=== PATIENT | male | born 1975 | race Caucasian/White ===

== ENCOUNTER 2018-01-26 04:30 | Emergency (ER) | END 2018-01-26 08:00 | disposition home or self-care (01) ==

== ENCOUNTER 2018-08-24 10:09 | Observation (INO) | payer MEDICAID ==
[~2018-08-24] VITALS: Ht 167.6 cm; Wt 100.5 kg
[~2018-08-24 10:09] MED LIST: NAPR-985 PO
--- NOTE | 2018-08-24 11:49 | ERD ---
ER Documentation Chief Complaint Chief Complaint SOB X3 DAYS, CHEST PRESSURE, NO COUGHING HPI The patient is a 43-year-old male, presenting to the ER because of left-sided chest pressure and shortness of breath that began 3 days ago. He had similar symptoms previously, the chest pressure is worse with movement. He denies chest pain with vomiting/radiation/exertion/diaphoresis, pleuritic chest pain, abdominal pain, vomiting, dysuria, diarrhea. He does not smoke, drinks regularly, works in construction Past medical/surgical history: None ROS All systems reviewed and are negative except as per history of present illness. Medications Home Meds Discontinued Scripts Naproxen* (Naprosyn*) 500 Mg Tablet, 500 MG PO BID PRN for PAIN AND/OR INFLAMMATION, #30 TAB Prov:AUDREY PETERSON MD 01/26/18 Allergies Allergies: Coded Allergies: No Known Allergy (Unverified , 08/24/18) PMhx/Soc Hx Alcohol Use: No Hx Substance Use: No Hx Tobacco Use: No Physical Exam Vitals Vital Signs Date Temp Pulse Resp B/P (MAP) Pulse Ox O2 O2 Flow FiO2 Time Delivery Rate 08/24/18 98.3 57 20 111/71 99 Nasal 2.0 14:28 (84) Cannula 08/24/18 98.3 61 20 125/63 99 Nasal 2.0 14:00 (83) Cannula 08/24/18 98.3 59 20 106/80 99 Nasal 2.0 13:30 (89) Cannula 08/24/18 98.3 100 20 125/81 98 Room Air 12:30 (96) 08/24/18 Nasal 12:05 Cannula 08/24/18 Nasal 11:44 Cannula 08/24/18 97.0 75 16 129/73 97 10:16 (91) Physical Exam Const: No acute distress. Head: Atraumatic. Eyes: Normal Conjunctiva. ENT: Normal External Ears, Nose and Mouth. Neck: Full range of motion. No meningismus. Resp: Clear to auscultation bilaterally. Cardio: Regular rate and rhythm. left sided chest discomfort on palpation, no crepitus Abd: Soft, non distended, normal bowel sounds, non tender. Skin: No petechiae or rashes. Back: No midline or flank tenderness. Ext: No cyanosis, or edema. Neur: Awake and alert. No focal deficit Psych: Normal Mood and Affect. Result Diagram: 08/24/18 1200 08/24/18 1200 Results 24 hrs Laboratory Tests Test 08/24/18 12:00 White Blood Count 7.9 10^3/ul Red Blood Count 5.27 10^6/ul Hemoglobin 15.7 g/dl Hematocrit 47.0 % Mean Corpuscular Volume 89.2 fl Mean Corpuscular Hemoglobin 29.8 pg Mean Corpuscular Hemoglobin Concent 33.4 g/dl Red Cell Distribution Width 13.3 % Platelet Count 216 10^3/UL Mean Platelet Volume 9.6 fl Immature Granulocytes % 0.300 % Neutrophils % 55.8 % Lymphocytes % 32.2 % Monocytes % 7.7 % Eosinophils % 3.4 % Basophils % 0.6 % Nucleated Red Blood Cells % 0.0 /100WBC Immature Granulocytes # 0.020 10^3/ul Neutrophils # 4.4 10^3/ul Lymphocytes # 2.6 10^3/ul Monocytes # 0.6 10^3/ul Eosinophils # 0.3 10^3/ul Basophils # 0.1 10^3/ul Nucleated Red Blood Cells # 0.0 10^3/ul D-Dimer 371.87 ng/ml D-Dimer Comment Sodium Level 142 mmol/L Potassium Level 4.2 mmol/L Chloride Level 102 mmol/L Carbon Dioxide Level 27 mmol/L Anion Gap 13 Blood Urea Nitrogen 12 mg/dl Creatinine 0.70 mg/dl Est Glomerular Filtrat Rate mL/min > 60 mL/min Glucose Level 95 mg/dl Calcium Level 9.0 mg/dl Troponin I < 0.012 ng/ml Current Medications Medications Dose Sig/Jonathon Start Time Status Last (Trade) Ordered Route PRN Stop Time Admin Dose Reason Admin Ketorolac 30 mg ONCE STAT 08/24/18 DC 08/24/18 Tromethamine IV 11:57 12:08 (Toradol) 08/24/18 11:59 Aspirin 324 mg ONCE ONCE 08/24/18 DC 08/24/18 (Aspirin) PO 14:00 14:21 08/24/18 14:01 1 inch ONCE ONCE 08/24/18 DC 08/24/18 Nitroglycerin TD 14:00 14:21 08/24/18 14:01 (Nitroglyceri n 2% Oint) Vancomycin 250 ml @ ONCE ONCE 08/24/18 HCl 125 mls/hr IVPB 14:30 08/24/18 16:29 Piperacillin 100 ml @ ONCE ONCE 08/24/18 Sod/ 200 mls/hr IVPB 14:30 Tazobactam 08/24/18 14:59 Sod Procedures/MDM [place] [id number] Radiology Main Line: [phone] DIAGNOSTIC IMAGING REPORT Patient: EVERARDO SMITH : 1975 Age: 43 Sex: M MR #: [id number] DOS: 08/24/18 1157 Ordering MD: ROBBY HUGHES MD Location: E/R Room/Bed: PROCEDURE: XR Chest AP portable CLINICAL INDICATION: Chest pain TECHNIQUE: An AP portable radiograph of the chest was submitted. COMPARISON: 01/26/2018 FINDINGS: Support Hardware: None Cardiovascular: The cardiovascular silhouette appears unremarkable. Lung Echeverria: The patient is taken a suboptimal inspiration compressing lung parenchyma. Discoid atelectatic change has developed at the lung bases. Pleural Spaces: No pneumothorax or pleural effusion is identified. Osseous Structures: The osseous structures appear intact. Soft Tissues: The soft tissues appear generous. IMPRESSION: 1. Suboptimal inspiration with development of discoid atelectasis at the lung bases. 2. Otherwise, stable and unremarkable portable chest. Physician Xi Date Time Electronically viewed and signed by Physician Xi on 08/24/2018 12:39 RH/ CC: ROBBY HUGHES MD [phone] EKG: At 10:18 AM read by emergency physician Rate/Rhythm: Normal Sinus Rhythm 71 beats/min QRS, ST, T-waves: No ST elevation, no T inversion, inferior T abnormality Impression: Abnormal EKG EKG: At 1:17 PM read by emergency physician Rate/Rhythm: Sinus bradycardia 57 beats/min QRS, ST, T-waves: No ST elevation, upright T wave in V1 Impression: Abnormal EKG MEDICAL MAKING DECISION: The patient is a 43-year-old male, presenting with acute chest pain with abnormal EKG, concerning for acute ACS. He was treated with Toradol 30 mg IV, aspirin 324 mg p.o. and 1 g of nitroglycerin ointment to the chest wall for acute chest pain with good response The differential diagnoses considered include but are not limited to acute coronary syndrome, acute myocardial infarction, pericarditis, pulmonary embolism, aortic dissection, pneumonia, pleural effusion, pneumothorax, GERD, chest wall pain. Departure Diagnosis: Primary Impression: Chest pain Condition: Stable Comments I discussed the findings with the patient. I discussed the patient with the spitalist . who was made aware of the lab, the treatment, the patient condition. The patient is admitted to [facility] Disclaimer: Inadvertent spelling and grammatical errors are likely due to EHR/dictation software use and do not reflect on the overall quality of patient care. Also, please note that the electronic time recorded on this note does not necessarily reflect the actual time of the patient encounter. ROBBY HUGHES MD Aug 24, 2018 11:49
[2018-08-24] MEDS ORDERED: KETOROLAC 30 MG INJ IV STA (11:57)
[2018-08-24] MEDS ORDERED: ASPIRIN 81 MG TAB PO ONE (14:00)
[2018-08-24] MEDS ORDERED: NITROGLYCERIN 2% 1 GM OINT PKT TD ONE (14:00)
[2018-08-24] MEDS ORDERED: VANCOMYCIN 1 GM (PMX) 250 ML IVPB ONE (14:30)
[2018-08-24] MEDS ORDERED: PIPER-TAZO 3.375 GM IV (PMX) 100 ML IVPB ONE (14:30)
--- NOTE | 2018-08-24 15:58 | HP ---
Date/Time of Note Date/Time of Note DATE: 08/24/18 TIME: 15:58 Assessment/Plan VTE Prophylaxis SCD applied (from Nsg): No SCD contraindicated: other Pharmacological prophylaxis: heparin Lines/Catheters IV Catheter Type (from Nrsg): Saline Lock Assessment/Plan Hospital Course Assessment and plan: 43-year-old male with chest pain. #Chest pain: Rule out ACS versus muscular skeletal origin versus other -Admit patient, check TSH A1c lipid panel -Trend troponins every 6 hours x3, put patient on morphine, oxygen, aspirin, nitroglycerin as needed -Follow-up results of 2D echocardiogram and lipid panel #Alcohol use: Not showing any signs of withdrawal -Monitor, counseled on cessation Result Diagram: 08/24/18 1200 08/24/18 1200 Results 24hrs Laboratory Tests Test 08/24/18 12:00 White Blood Count 7.9 Red Blood Count 5.27 Hemoglobin 15.7 Hematocrit 47.0 Mean Corpuscular Volume 89.2 Mean Corpuscular Hemoglobin 29.8 Mean Corpuscular Hemoglobin Concent 33.4 Red Cell Distribution Width 13.3 Platelet Count 216 Mean Platelet Volume 9.6 Immature Granulocytes % 0.300 Neutrophils % 55.8 Lymphocytes % 32.2 Monocytes % 7.7 Eosinophils % 3.4 Basophils % 0.6 Nucleated Red Blood Cells % 0.0 Immature Granulocytes # 0.020 Neutrophils # 4.4 Lymphocytes # 2.6 Monocytes # 0.6 Eosinophils # 0.3 Basophils # 0.1 Nucleated Red Blood Cells # 0.0 D-Dimer 371.87 D-Dimer Comment Sodium Level 142 Potassium Level 4.2 Chloride Level 102 Carbon Dioxide Level 27 Anion Gap 13 Blood Urea Nitrogen 12 Creatinine 0.70 Est Glomerular Filtrat Rate mL/min > 60 Glucose Level 95 Calcium Level 9.0 Troponin I < 0.012 HPI/ROS Admit Date/Time Admit Date/Time Aug 24, 2018 at 14:47 Hx of Present Illness 43-year-old male with no significant past medical history who complains of chest pain. Patient states his symptoms have been going on for the last 2-3 days. Denies any radiation. Describes it somewhat as pressure-like. Did not take any relieving medications at home. No upper or lower GI bleeding, nausea vomiting, fever chills, diarrhea, space, headaches or dizziness or loss conscious. No vision changes. PMH/Family/Social Past Medical History Medical History: no pertinent history Medications Current Medications Vancomycin HCl 250 ml @ 125 mls/hr ONCE ONCE IVPB Last administered on 08/24/18at 15:29; Admin Dose 125 MLS/HR; Start 08/24/18 at 14:30; Stop 08/24/18 at 16:29 IV Flush (NS 3 ml) 3 ml PER PROTOCOL IV ; Start 08/24/18 at 16:00; Status UNV Ondansetron HCl (Zofran Inj) 4 mg Q6H PRN IV NAUSEA AND/OR VOMITING; Start 08/24/18 at 16:00; Status UNV Acetaminophen (Tylenol Tab) 650 mg Q6H PRN PO PAIN LEVEL 1-3 OR FEVER; Start 08/24/18 at 16:00; Status UNV Acetaminophen/ Hydrocodone Bitart ([place] (5/325)) 1 tab Q6H PRN PO MODERATE PAIN LEVEL 4-6; Start 08/24/18 at 16:00; Status UNV Morphine Sulfate (morphine) 2 mg Q4H PRN IV SEVERE PAIN LEVEL 7-10; Start 08/24/18 at 16:00; Status UNV Docusate Sodium (Colace) 100 mg Q12H PRN PO CONSTIPATION; Start 08/24/18 at 16:00; Status UNV Magnesium Hydroxide (Milk Of Mag) 30 ml DAILY PRN PO CONSTIPATION; Start 08/24/18 at 16:00; Status UNV Heparin Sodium (Porcine) (Heparin (5000 Units/1ml)) 5,000 unit Q12 SC ; Start 08/24/18 at 21:00; Status UNV Coded Allergies: No Known Allergy (Unverified , 08/24/18) Past Surgical History Past Surgical Hx: no surgical history Social History Alcohol Use: occasionally Smoking Status: Never smoker Drug Use: none Exam/Review of Systems Vital Signs Vitals Vital Signs Date Temp Pulse Resp B/P (MAP) Pulse Ox O2 O2 Flow FiO2 Time Delivery Rate 08/24/18 98.3 70 20 109/77 97 Nasal 2.0 15:30 (88) Cannula Exam Exam General: Lying in bed, no acute distress Head: Atraumatic Eyes: Normal Conjunctiva ENT: Normal External Ears, Nose and Mouth. Neck: Full range of motion. No meningismus. Resp: Clear to auscultation bilaterally Cardio: Regular rate and rhythm, no murmurs Abd: Soft, non tender, non distended. Normal bowel sounds Ext: No lower extremity edema bilateral Neuro: No focal deficits PRADIP REYES Aug 24, 2018 15:58
[2018-08-24 15:59] VITALS: PULSE 65
[2018-08-24 16:00] VITALS: BP 116/67; PULSE 62; RESP 21
[2018-08-24] MEDS ORDERED: LORAZEPAM 2 MG INJ IV PRN (16:00)
[2018-08-24] MEDS ORDERED: ONDANSETRON 4 MG INJ IV PRN (16:00)
[2018-08-24] MEDS ORDERED: ALBUTEROL/IPRATROPIUM (NEB) 3 ML AMP HHN PRN (16:00)
[2018-08-24] MEDS ORDERED: HYDROCODONE/APAP (5/325) TAB PO PRN (16:00)
[2018-08-24] MEDS ORDERED: MAGNESIUM HYDROXIDE 30ML CUP PO PRN (16:00)
[2018-08-24] MEDS ORDERED: NITROGLYCERIN (SL) 0.4 MG TAB SL PRN (16:00)
[2018-08-24] MEDS ORDERED: DOCUSATE SODIUM 100 MG CAP PO PRN (16:00)
[2018-08-24] MEDS ORDERED: hydrALAzine 20 MG INJ IV PRN (16:00)
[2018-08-24] MEDS ORDERED: morphine SULFATE/PF (2 MG/2 ML) SYG IV PRN (16:00)
[2018-08-24] MEDS ORDERED: ACETAMINOPHEN 325 MG TAB PO PRN (16:00)
[2018-08-24] MEDS ORDERED: NACL 0.9% 3 ML SYG IV SCH (16:00)
[2018-08-24 16:15] VITALS: Ht 167.6 cm; Wt 100.5 kg
[2018-08-24 16:40] VITALS: PULSE 65
[2018-08-24] MEDS: SOD CHLORIDE 0.45% 1,000 ML IV SCH (17:08)
[2018-08-24 20:00] VITALS: PULSE 66
[2018-08-24] MEDS: HEPARIN 5,000 UNIT/1 ML VIAL SC SCH (22:18)
[2018-08-25] VITALS: PULSE 96
[2018-08-25] MEDS: SOD CHLORIDE 0.45% 1,000 ML IV SCH (03:18)
[2018-08-25 04:00] VITALS: PULSE 52
[2018-08-25 07:28] VITALS: BP 100/59; PULSE 70; RESP 18
[2018-08-25] MEDS: HEPARIN 5,000 UNIT/1 ML VIAL SC SCH (08:54)
[2018-08-25 08:59] VITALS: PULSE 78
[2018-08-25] MEDS ORDERED: ASPIRIN (EC) 325 MG TAB PO SCH (09:00)
--- NOTE | 2018-08-25 09:40 | PDOCDIS ---
Discharge Instructions CONDITION [id number] Patient Condition: [id number] Stable ACTIVITY: [id number] Activity Restrictions: [id number] Slowly Increase Activity Rest between Activity Avoid heavy lifting FOLLOW UP/APPOINTMENTS Follow-up Plan Please take your medications as prescribed, watch her alcohol intake, follow-up with your primary doctor in the clinic in the next 1-2 weeks. PRADIP REYES Aug 25, 2018 09:40
--- NOTE | 2018-08-25 09:43 | DS ---
Date/Time of Note Date/Time of Note DATE: 08/25/18 TIME: 09:41 Discharge Summary Admission/Discharge Info Admit Date/Time Aug 24, 2018 at 14:47 Discharge Date/Time Discharge Diagnosis #Chest pain: Has ruled out ACS #Alcohol use: counseled on cessation Patient Condition: Stable Hx of Present Illness 43-year-old male with no significant past medical history who complains of chest pain. Patient states his symptoms have been going on for the last 2-3 days. Denies any radiation. Describes it somewhat as pressure-like. Did not take any relieving medications at home. No upper or lower GI bleeding, nausea vomiting, fever chills, diarrhea, space, headaches or dizziness or loss conscious. No vision changes. Hospital Course So patient was admitted to telemetry floor. Patient ruled out for acute coronary syndrome as her troponins were negative x4. Over the course of the patient's hospital stay he was able to ambulate, tolerated p.o. diet. More importantly his chest pain symptoms resolved. Echocardiogram was ordered and performed, results are still pending by the time of this discharge summary, but because the patient is clinically improved he will be discharged home today improved condition. He was educated about alcohol cessation as well. See below for full list of discharge medications. Home Meds Discontinued Scripts Naproxen* (Naprosyn*) 500 Mg Tablet, 500 MG PO BID PRN for PAIN AND/OR INFLAMMATION, #30 TAB Prov:AUDREY PETERSON MD 01/26/18 Follow-up Plan Please take your medications as prescribed, watch her alcohol intake, follow-up with your primary doctor in the clinic in the next 1-2 weeks. Primary Care Provider Care Physician No Primary Time spent on discharge: > 30 minutes Pending Labs Laboratory Tests Test 08/24/18 12:00 08/24/18 16:49 08/24/18 16:52 08/24/18 19:25 White Blood 7.9 Count 10^3/ul (4.8-10 .8) Red Blood 5.27 Count 10^6/ul (4.70-6 .10) Hemoglobin 15.7 g/dl (14.0-18.0 ) Hematocrit 47.0 % (42.0-52.0) Mean 89.2 Corpuscular fl (82.0-101.0) Volume Mean 29.8 Corpuscular pg (29.0-33.0) Hemoglobin Mean 33.4 Corpuscular g/dl (32.0-37.0 Hemoglobin Conc ) ent Red Cell 13.3 Distribution % (11.5-14.5) Width Platelet Count 216 10^3/UL (140-41 5) Mean Platelet 9.6 Volume fl (7.4-10.4) Immature 0.300 Granulocytes % % (0.001-0.429) Neutrophils % 55.8 % (39.0-77.0) Lymphocytes % 32.2 % (15.0-51.0) Monocytes % 7.7 % (0.0-11.0) Eosinophils % 3.4 % (0.0-7.0) Basophils % 0.6 % (0.0-2.0) Nucleated Red 0.0 Blood Cells % /100WBC (0.0-0. 0) Immature 0.020 Granulocytes # 10^3/ul (0.0-0. 031) Neutrophils # 4.4 10^3/ul (1.6-7. 5) Lymphocytes # 2.6 10^3/ul (0.8-2. 9) Monocytes # 0.6 10^3/ul (0.3-0. 9) Eosinophils # 0.3 10^3/ul (0.0-0. 5) Basophils # 0.1 10^3/ul (0.0-0. 1) Nucleated Red 0.0 Blood Cells # 10^3/ul (0.0-0. 0) D-Dimer 371.87 ng/ml (<460) D-Dimer Comment Sodium Level 142 mmol/L (135-144 ) Potassium 4.2 Level mmol/L (3.5-5.1 ) Chloride Level 102 mmol/L (97-110) Carbon Dioxide 27 Level mmol/L (21-31) Anion Gap 13 (5-13) Blood Urea 12 mg/dl (7-20) Nitrogen Creatinine 0.70 mg/dl (0.61-1.2 4) Est Glomerular > 60 Filtrat mL/min (>60) Rate mL/min Glucose Level 95 mg/dl (70-220) Calcium Level 9.0 mg/dl (8.4-10.2 ) Troponin I < 0.012 < 0.012 < 0.012 ng/ml (0.000-0. ng/ml (0.000-0 ng/ml (0.000-0 120) .120) .120) Ethyl Alcohol < 10.0 Level mg/dl (0-0) Creatine 88 84 Kinase IU/L (23-200) IU/L (23-200) Creatine Kinase 1.9 1.6 Index Creatinine 1.63 1.33 Kinase MB ng/ml (0.0-2.4 ng/ml (0.0-2.4 (Mass) ) ) Free Thyroxine 1.38 ng/dl (0.64-1. 79) Test 08/25/18 00:05 08/25/18 05:31 Creatine 83 Kinase IU/L (23-200) Creatine Kinase 1.8 Index Creatinine 1.49 Kinase MB ng/ml (0.0-2.4) (Mass) Troponin I < 0.012 ng/ml (0.000-0. 120) White Blood 7.2 Count 10^3/ul (4.8-1 0.8) Red Blood 4.69 Count 10^6/ul (4.70- 6.10) Hemoglobin 14.3 g/dl (14.0-18. 0) Hematocrit 41.8 % (42.0-52.0) Mean 89.1 Corpuscular fl (82.0-101.0 Volume ) Mean 30.5 Corpuscular pg (29.0-33.0) Hemoglobin Mean 34.2 Corpuscular g/dl (32.0-37. Hemoglobin Conc 0) ent Red Cell 13.7 Distribution % (11.5-14.5) Width Platelet Count 178 10^3/UL (140-4 15) Mean Platelet 10.1 Volume fl (7.4-10.4) Immature 0.400 Granulocytes % % (0.001-0.429 ) Neutrophils % 54.8 % (39.0-77.0) Lymphocytes % 32.4 % (15.0-51.0) Monocytes % 7.0 % (0.0-11.0) Eosinophils % 5.0 % (0.0-7.0) Basophils % 0.4 % (0.0-2.0) Nucleated Red 0.0 Blood Cells % /100WBC (0.0-0 .0) Immature 0.030 Granulocytes # 10^3/ul (0.0-0 .031) Neutrophils # 3.9 10^3/ul (1.6-7 .5) Lymphocytes # 2.3 10^3/ul (0.8-2 .9) Monocytes # 0.5 10^3/ul (0.3-0 .9) Eosinophils # 0.4 10^3/ul (0.0-0 .5) Basophils # 0.0 10^3/ul (0.0-0 .1) Nucleated Red 0.0 Blood Cells # 10^3/ul (0.0-0 .0) Sodium Level 142 mmol/L (135-14 4) Potassium 4.2 Level mmol/L (3.5-5. 1) Chloride Level 105 mmol/L (97-110 ) Carbon Dioxide 26 Level mmol/L (21-31) Anion Gap 11 (5-13) Blood Urea 15 Nitrogen mg/dl (7-20) Creatinine 0.63 mg/dl (0.61-1. 24) Est Glomerular > 60 Filtrat mL/min (>60) Rate mL/min Glucose Level 123 mg/dl (70-220) Hemoglobin A1c 6.6 % (0-5.9) Calcium Level 8.5 mg/dl (8.4-10. 2) Phosphorus 4.7 Level mg/dl (2.5-4.9 ) Magnesium 2.1 Level mg/dl (1.7-2.5 ) Triglycerides 136 Level mg/dl (0-149) Cholesterol 162 Level mg/dl (100-200 ) LDL 103 mg/dl Cholesterol, Calculated HDL 32 Cholesterol mg/dl (27-67) Cholesterol/HDL 5.0 RATIO Ratio Thyroid 2.910 Stimulating MIU/L (0.465-4 Hormone (TSH) .680) PRADIP REYES Aug 25, 2018 09:43
--- NOTE | 2018-08-25 09:43 | RADRPT ---
Echocardiogram Report Patient Name: EVERARDO SMITH Gender: Male Date: 1975 Study Date: 24-Aug-2018 Practice Consultant: FORD Location: [address] Ref. Physician: PRADIP REYES Quality: Good Procedures: Transthoracic echocardiogram with complete 2D, M-Mode, and doppler examination. Indications: Chest Pain. 2D/M Mode Doppler Measurement Value Normal Ranges Measurement Value Normal Ranges LVIDd 2D 4.8 3.5 - 5.6 cm AV Mean Pan 0.8 m/sec LVIDs 2D 3.3 2.1 - 4.1 cm AV Mean PG 3.0 mmHg LVPWd 2D 1.0 0.6 - 1.1 cm AV Peak Pan 1.1 m/sec IVSd 2D 0.9 0.6 - 1.1 cm AV Peak PG 5.0 mmHg AoR Diam 2D 3.1 2.0 - 3.7 cm AV VTI 24.1 cm LA/Ao 2D 1 0 - 1 LVOT Mean Pan 0.6 m/sec EF 2D 58.0 50.0 - 65.0 % LVOT Mean PG 2.0 mmHg LA Dimen 2D 3.5 2.3 - 4.0 cm LVOT Peak Pan 1.0 m/sec IVC Diam 1.3 1.2 - 2.0 LVOT Peak PG 4.0 mmHg MV E Peak Pan 0.7 m/sec MV A Peak Pan 0.5 m/sec MV E/A 1.2 MV PHT 67.0 msec MV Decel Time 229 msec MV Decel Winn 3 MV E/A 1.2 MV PHT 67.0 msec MVA PHT 3.3 cm2 TAPSE 2.2 cm TR Peak Pan 2.4 m/sec TR Peak PG 23.0 mmHg RVSP 26.0 mmHg RA Pressure 3.0 Findings Left Ventricle: Normal left ventricular systolic function. Normal left ventricular cavity size. Normal left ventricular wall thickness. Ejection fraction is visually estimated at 55 %. Tissue Doppler/Mitral Doppler indices are within normal limits. Right Ventricle: Severe enlargement of right ventricle. Left Atrium: The left atrium is normal in size. Right Atrium: The right atrium is normal in size. Mitral Valve: Normal appearance and function of the mitral valve with trace physiologic regurgitation. Aortic Valve: Normal appearance of the aortic valve. No significant aortic stenosis or insufficiency. Tricuspid Valve: Normal appearance and function of the tricuspid valve with trace physiologic regurgitation. Normal right ventricular systolic pressure. Estimated peak PA systolic pressure 26 mmHg. Pulmonic Valve: Normal pulmonic valve appearance. Pericardium: Normal pericardium with no significant pericardial effusion. Aorta: Normal aortic root. IVC: Normal size and normal respiratory collapse consistent with normal right atrial pressure. Conclusions Normal left ventricular systolic function. Normal left ventricular cavity size. Normal left ventricular wall thickness. Ejection fraction is visually estimated at 55 %. Tissue Doppler/Mitral Doppler indices are within normal limits. Normal appearance of the aortic valve. No significant aortic stenosis or insufficiency. Normal appearance and function of the tricuspid valve with trace physiologic regurgitation. Normal right ventricular systolic pressure. Estimated peak PA systolic pressure 26 mmHg. Normal appearance and function of the mitral valve with trace physiologic regurgitation. Electronically Signed By: Mohit Cullen 25-Aug-2018 09:42:11 -0800 Patient Name: EVERARDO SMITH Study Date: 24-Aug-2018 [id number]
== END 2018-08-25 11:12 | disposition home or self-care (01) ==
LOC: E/R 10:09 → 6WM 14:47
PROVIDERS: ADMIT Hospitalist; ATTEND Hospitalist
DX: R07.9 Chest pain, unspecified (principal); F10.10 Alcohol abuse, uncomplicated; Z23 Encounter for immunization
CPT/HCPCS: 36415; 71045; 80048; 80061; 80307; 82550; 82553; 83036; 83735; 84100; 84439; 84443; 84484; 85025; 85378; 87040; 90686; 93005; 93306; 96374; J1644; J1885; J2543; J3370; Z7500; Z7502; Z7610; G0378